=== PATIENT | male | born 2005 | race Caucasian/White ===

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

== ENCOUNTER 2023-09-26 18:04 | Emergency (ER) | payer OTHER ==
--- OUTSIDE RECORDS SUMMARY | 2023-09-26 18:17 | XMS REPORT | Continuity of Care Document ---
Author Name Unknown Address [address] [place], [place] [address]ect Address [address] [place] [address] [address] [place] [address] Care Team Providers Care Manager Recruiting Name Role Phone Unavailable Unavailable Unavailable Encounters Start Date/Time End Date/Time Encounter Type Admission Type Attending Clinicians Care Facility Care Department Encounter ID Source 2022-10-27 16:19:08 2022-10-27 16:19:08 Outpatient [facility] [id number] Bandar Mitchell
[2023-09-26] MEDS ORDERED: LEVETIRACETAM 500 MG/5 ML VIAL IV ONE (18:37)
[2023-09-26] MEDS ORDERED: NA CHLORIDE 0.9% 100 ML ONE (18:38)
[2023-09-26] MEDS ORDERED: CEFAZOLIN SODIUM 1 GM/VIAL ONE (18:38)
[2023-09-26 18:41] LABS: Anion Gap 9.5 mEq/L (5.0-15.0); Potassium 3.5 mEq/L (3.5-5.1)
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
[2023-09-26 18:53] LABS: PT Prothrombin Time 11.4 SECONDS (9.5-12.5); Protime INR 1.04
[2023-09-26 18:58] LABS: Absolute Eosinophils 0.3 K/uL (0-0.5); Absolute Lymphocytes (CBC) 1.4 K/uL (0.7-4.9); Absolute Monocytes 0.7 K/uL (0.1-1.3); Absolute Neutrophil 8.3 K/uL (1.8-8.0); Basophils % 0.2 % (0-1.3); Eosinophils % 2.4 % (0-4.4); Hematocrit 41.7 % (39.6-49.0); Lymphocytes % 13.2 % (15.3-44.8); MCHC 33.5 g/dL (32.0-36.0); MCV 89.5 fL (80-100); MPV 8.3 fL (7.6-11.3); Monocytes % 6.9 % (3.3-12.3); Neutrophils % 77.3 % (41.7-73.7); Platelets 371 thou/uL (152-406); RBC Red Blood Cell Count 4.66 M/uL (4.33-5.43); Red Cell Distribution Width 12.6 % (12.1-15.2)
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
[2023-09-26 20:06] VITALS: TEMP 98
[2023-09-26 20:26] VITALS: BP 150/76; O2SAT 100
== END 2023-09-26 19:29 | disposition short-term general hospital (02) ==
LOC: ER 18:04
DX: S06.5X9A Traumatic subdural hemorrhage with loss of consciousness of unspecified duration, initial encounter (principal); S02.0XXA Fracture of vault of skull, initial encounter for closed fracture; V47.5XXA Car driver injured in collision with fixed or stationary object in traffic accident, initial encounter
CPT/HCPCS: 85025; 80048; 36415; 86900; 86850; 85610; 86901; 70450; 72125; 71260; 74177; 99285; Q9967; J1953; J0690